=== PATIENT | male | born 1970 | race Caucasian/White ===

== ENCOUNTER 2018-07-23 20:43 | Emergency (ER) | payer OTHER ==
[~2018-07-23] VITALS: Ht 188 cm; Wt 78.0 kg
[2018-07-23] MEDS ORDERED: SODI473S8 TOP (21:14)
[2018-07-23] MEDS ORDERED: POTA-10 PO (21:14)
[2018-07-23] MEDS ORDERED: SULF1TAB48 PO (21:14)
[2018-07-23] MEDS ORDERED: FURO-151 PO (21:14)
[2018-07-23] MEDS ORDERED: GABA300C PO (21:15)
[2018-07-23] MEDS ORDERED: ASCO500C18 PO (21:15)
[2018-07-23] MEDS ORDERED: AMIN30LI2 PO (21:15)
[2018-07-23] MEDS ORDERED: CLIN300C11 PO (21:15)
[2018-07-23] MEDS ORDERED: MULT-213 PO (21:15)
[2018-07-23] MEDS ORDERED: TRIA15OI11 TP (21:15)
[2018-07-23] MEDS ORDERED: CLOT30SO2 TP (21:15)
[2018-07-23] MEDS ORDERED: IBUP-1954 PO (21:15)
[2018-07-23] MEDS ORDERED: HYDR-4354 PO (21:15)
--- NOTE | 2018-07-23 21:30 | NUR ---
Dr. Long at bedside for MSE.
[2018-07-23] MEDS ORDERED: AMOXicillin 250 MG CAPSULE PO ONE (21:45)
[2018-07-23] MEDS ORDERED: AMOXicillin 250 MG CAPSULE ONE ×2 (21:46→21:47)
--- NOTE | 2018-07-23 22:05 | NUR ---
Called the [facility] for transport of pt back to [facility]. Given ETA [id number], trip#[id number]
--- NOTE | 2018-07-23 23:45 | NUR ---
Nils arrived to ER to transport back to [facility]. Report and documentation given to EMT.
--- NOTE | 2018-07-23 23:47 | NUR ---
Pt out of ER via [facility]. Report and documentation with EMT.
[2018-07-23 23:48] VITALS: BP 105/68
== END 2018-07-23 23:49 | disposition home or self-care (01) ==
LOC: ER 20:43
DX: J32.9 Chronic sinusitis, unspecified (principal); Z79.1 Long term (current) use of non-steroidal anti-inflammatories (NSAID); Z79.899 Other long term (current) drug therapy
CPT/HCPCS: A4663